=== PATIENT | female | born 1960 | race Caucasian/White ===

== ENCOUNTER 2020-03-01 02:21 | Emergency (ER) | payer BC ==
[2020-03-01] MEDS ORDERED: Metoclopramide 10 MG/2 ML SDV IVPUSH ONE (02:46)
[2020-03-01] MEDS ORDERED: Sodium Chloride 0.9% 1,000 ML IV ONE (02:46)
[2020-03-01] MEDS ORDERED: Ketorolac 30 MG/ML SDV IVPUSH ONE (02:46)
--- NOTE | 2020-03-01 02:52 | EDM.PDOC ---
ED HPI GENERAL MEDICAL PROBLEM - General Stated Complaint: HEADACHE Time Seen by Provider: 03/01/20 02:35 Source of Information: Reports: Patient History Limitations: Reports: No Limitations - History of Present Illness INITIAL COMMENTS - FREE TEXT/NARRATIVE: c/o GUERRERO at 5p pt was eating and choked on a piece of chicken, she had an emesis and bifrontal GUERRERO at the top of her head that developed at the same time, N went away but GUERRERO did not, she took APAP 500 mg x 3 doses without benefit not able to lay down d/t GUERRERO had a similar episode last week after she had N no diplopia, does not want lights dimmed works as junior bookkeeper lives with who is not ill no over sxs - Related Data Allergies Allergy/AdvReac Type Severity Reaction Status Date / Time No Known Allergies Allergy Verified 03/01/20 03:50 Home Meds: Home Meds Escitalopram Oxalate 10 mg PO DAILY 03/01/20 [History] Rosuvastatin [Crestor] 20 mg PO DAILY 03/01/20 [History] ED ROS GENERAL - Review of Systems Review Of Systems: See Below Constitutional: Reports: No Symptoms HEENT: Reports: No Symptoms Respiratory: Reports: No Symptoms Cardiovascular: Reports: No Symptoms Endocrine: Reports: No Symptoms GI/Abdominal: Reports: No Symptoms : Reports: No Symptoms Musculoskeletal: Reports: No Symptoms Skin: Reports: No Symptoms Neurological: Reports: Headache. Denies: Tingling, Tremors, Trouble Speaking, Difficulty Walking, Weakness, Change in Speech, Gait Disturbance Psychiatric: Reports: No Symptoms Hematologic/Lymphatic: Reports: No Symptoms Immunologic: Reports: No Symptoms - Physical Exam Exam: See Below Exam Limited By: No Limitations General Appearance: Alert, WD/WN, No Apparent Distress, Other (alert, pleasant, normal speech, good eye contact, sitting on edge of bed) Eye Exam: Bilateral Eye: EOMI, Normal Inspection, PERRL Ears: Normal External Exam, Normal Canal, Hearing Grossly Normal Nose: Normal Inspection, Normal Mucosa, No Blood Throat/Mouth: Normal Inspection, Normal Lips, Normal Teeth, Normal Oropharynx, Normal Voice, No Airway Compromise Head Exam: Atraumatic, Normocephalic Neck: Normal Inspection, Supple, Non-Tender, Full Range of Motion Respiratory/Chest: No Respiratory Distress, Lungs Clear, Normal Breath Sounds, No Accessory Muscle Use, Chest Non-Tender Cardiovascular: Regular Rate, Rhythm, No Edema, No Gallop, No JVD, No Murmur, No Rub GI/Abdominal: Soft, Non-Tender, No Distention Back Exam: Normal Inspection, Full Range of Motion Extremities: Normal Inspection, Normal Range of Motion, Non-Tender, No Pedal Edema Psychiatric: Normal Affect, Normal Mood Skin Exam: Warm, Dry, Intact, Normal Color, No Rash Course - Vital Signs Last Recorded V/S: Last Vital Signs Temp 36.7 C 03/01/20 02:35 Pulse 80 03/01/20 02:35 Resp 18 03/01/20 02:35 BP 159/70 H 03/01/20 02:35 Pulse Ox - Orders/Labs/Meds Orders: Active Orders 24 hr Category Date Time Status Head wo Cont [CT] Stat Exams 03/01/20 03:13 Taken Meds: Medications Discontinued Medications Generic Name Dose Route Start Last Admin Trade Name Freq PRN Reason Stop Dose Admin Sodium Chloride 1,000 mls @ 999 mls/hr 03/01/20 02:46 03/01/20 03:10 Normal Saline IV 03/01/20 03:46 999 mls/hr .BOLUS ONE Administration Ketorolac Tromethamine 30 mg 03/01/20 02:46 03/01/20 03:33 Toradol IVPUSH 03/01/20 02:47 30 mg ONETIME ONE Administration Metoclopramide HCl 10 mg 03/01/20 02:46 03/01/20 03:15 Reglan IVPUSH 03/01/20 02:47 10 mg ONETIME ONE Administration - Re-Assessments/Exams Free Text/Narrative Re-Assessment/Exam: 03/01/20 04:23 headache is gone Departure - Departure Time of Disposition: 04:20 Disposition: Home, Self-Care 01 Condition: Good Clinical Impression: Tension-type headache - Discharge Information *PRESCRIPTION DRUG MONITORING PROGRAM REVIEWED*: Not Applicable *COPY OF PRESCRIPTION DRUG MONITORING REPORT IN PATIENT OSMEL: Not Applicable Instructions: Tension Headache, Adult Referrals: Nelda Romero, [facility] [Primary Care Provider] - Additional Instructions: To prevent rebound headache, take ibuprofen 200 mg 4 tabs and acetaminophen 500 mg 2 tabs in 8 hours. In the future, take ibuprofen 200 mg 2 tabs and acetaminophen 500 mg 2 tabs at onset of headache, repeat dose in eight hours. See your doctor in 2 days for further recommendations. Sepsis Event Note (ED) - Focused Exam Vital Signs: Vital Signs Temp Pulse Resp BP 03/01/20 02:35 36.7 C 80 18 159/70 H - My Orders Last 24 Hours: My Active Orders 03/01/20 03:13 Head wo Cont [CT] Stat - Assessment/Plan Last 24 Hours: My Active Orders 03/01/20 03:13 Head wo Cont [CT] Stat
[2020-03-01 06:13] VITALS: BP 148/64; PULSE 71
== END 2020-03-01 05:30 | disposition home or self-care (01) ==
LOC: FB.ED 02:21
DX: G44.209 Tension-type headache, unspecified, not intractable (principal); Z79.899 Other long term (current) drug therapy
CPT/HCPCS: 70450; 96361; 96374; 96375; 99284; J1885; J2765; J7030

== ENCOUNTER 2023-05-21 06:19 | Day surgery (SDC) | payer BC ==
[~2023-05-21 06:19] MED LIST: Lactated Ringers 1,000 ML IV SCH; Sodium Chloride 0.9% 10 ML Syringe FLUSH PRN
[2023-05-21] MEDS ORDERED: Propofol 200 MG/20 ML SDV IV ONE (06:20)
[2023-05-21 09:31] VITALS: BP 131/58; PULSE 64
== END 2023-05-21 09:10 | disposition home or self-care (01) ==
LOC: FB.SDS 06:19
PROVIDERS: ATTEND Surgery
DX: Z12.11 Encounter for screening for malignant neoplasm of colon (principal); K57.30 Diverticulosis of large intestine without perforation or abscess without bleeding; M81.0 Age-related osteoporosis without current pathological fracture; E78.2 Mixed hyperlipidemia; R73.03 Prediabetes; K21.9 Gastro-esophageal reflux disease without esophagitis; F17.210 Nicotine dependence, cigarettes, uncomplicated; Z86.010 Personal history of colon polyps; Z79.899 Other long term (current) drug therapy
CPT/HCPCS: 00812; 45378; J2704; J7120